=== PATIENT | female | born 2000 | race African-American/Black ===

== ENCOUNTER 2021-02-26 04:12 | Emergency (ER) | payer MEDICAID ==
[~2021-02-26] VITALS: Ht 157.5 cm; Wt 59.0 kg
[2021-02-26 04:12] VITALS: BP 126/67
--- NOTE | 2021-02-26 04:16 | NUR ---
pt bibself c/o skin rash and generalized itching. Pt aaox4 breathing evenly and unlabored. MD at bedside for eval. Upon assessment, pt has red rash all over body. Pt denies eating new foods or being in contact with any new soaps. pt attached to monitor and pox
[2021-02-26] MEDS ORDERED: PRED20TA PO (04:43)
[2021-02-26] MEDS ORDERED: DIPH25CA83 PO ×2 (04:43→04:44)
--- NOTE | 2021-02-26 04:45 | NUR ---
stk claritin 10mg given, but pulled from floor. not available in ED
[2021-02-26] MEDS ORDERED: predniSONE 20 MG TABLET ONE (04:52)
[2021-02-26] MEDS ORDERED: LORATADINE 10 MG TABLET ONE (04:56)
[2021-02-26] MEDS ORDERED: LORATADINE 10 MG TABLET PO SCH (05:00)
[2021-02-26] MEDS ORDERED: predniSONE 50 MG TABLET PO ONE (05:00)
== END 2021-02-26 05:00 | disposition home or self-care (01) ==
LOC: ER 04:21
DX: L50.9 Urticaria, unspecified (principal); F41.9 Anxiety disorder, unspecified; Z79.899 Other long term (current) drug therapy
CPT/HCPCS: 99283; J7512

== ENCOUNTER 2023-12-07 23:55 | Emergency (ER) | payer SELFPAY ==
[~2023-12-07] VITALS: Ht 157.5 cm; Wt 72.6 kg
[~2023-12-07 23:55] MED LIST: DIPH25CA83 PO; PRED20TA PO
[2023-12-08] MEDS ORDERED: MUPI22OI7 TP (01:07)
[2023-12-08] MEDS ORDERED: CLIN150C16 PO (01:07)
[2023-12-08 01:24] VITALS: BP 129/75; TEMP 98.2; O2SAT 99
== END 2023-12-08 01:25 | disposition home or self-care (01) ==
LOC: ER 23:58
DX: L03.012 Cellulitis of left finger (principal); Z79.899 Other long term (current) drug therapy

== ENCOUNTER 2025-02-21 01:32 | Emergency (ER) | payer OTHER ==
[~2025-02-21 01:32] MED LIST changes: +CLIN150C16 PO; +MUPI22OI7 TP
== END 2025-02-21 02:10 | disposition home or self-care (01) ==
LOC: ER 01:51
DX: J02.9 Acute pharyngitis, unspecified (principal); Z53.21 Procedure and treatment not carried out due to patient leaving prior to being seen by health care provider